=== PATIENT | female | born 1995 | race Two or more races ===

== ENCOUNTER 2024-06-15 13:01 | Emergency (ER) | payer OTHER ==
[~2024-06-15] VITALS: Ht 160 cm; Wt 45.4 kg
[2024-06-15] MEDS ORDERED: MELOXICAM15 MG PO (13:17)
[2024-06-15] MEDS ORDERED: OMEPRAZOLE20 M2 PO (13:18)
[2024-06-15] MEDS ORDERED: DEXAMETHASONE SODIUM PHOSPHATE 4 MG/ML VIAL IM ONE (18:15)
[2024-06-15] MEDS ORDERED: DIPHENHYDRAMINE HCL 50 MG/ML VIAL 1ML IM ONE (18:15)
[2024-06-15] MEDS ORDERED: ZYRTEC10 MG PO (20:28)
== END 2024-06-15 21:15 | disposition home or self-care (01) ==
LOC: ER 13:04
DX: T78.40XA Allergy, unspecified, initial encounter (principal); Z88.0 Allergy status to penicillin; M06.8A Other specified rheumatoid arthritis, other specified site